=== PATIENT | male | born 1965 | race Caucasian/White ===

== ENCOUNTER 2018-10-19 18:48 | Inpatient (IN) | payer OTHER ==
[~2018-10-19] VITALS: Ht 177.8 cm; Wt 108.6 kg
[~2018-10-19 18:48] MED LIST: COREG25 MG PO; FLEXERIL PO; LEVOTHYROXINE500 MCG PO; PERCOCET 5-3251 EACH PO
[2018-10-19 18:49] VITALS: BP 165/133
[2018-10-19] MEDS ORDERED: ASPIR 8181 MG PO (18:51)
[2018-10-19 19:19] LABS: ABSOLUTE BASOPHILS 0.1 thou/uL (0.0-0.2); ABSOLUTE LYMPHOCYTES 1.1 thou/uL (0.8-5.3); ABSOLUTE MONOCYTES 1.1 thou/uL (0.0-1.2); BASOPHILS 0.5 %; EOSINOPHILS 0.2 %; HEMATOCRIT 45.1 % (42.0-52.0); HEMOGLOBIN 15.1 gm/dL (14.0-18.0); LYMPHOCYTES 10.1 %; MCHC 33.4 g/dL (28.0-37.0); MCV 92.7 fL (80.0-100.0); MONOCYTES 9.4 %; MPV 8.2 fl. (7.2-11.1); NUCLEATED RBCS 0 /100WBC; PLATELET COUNT* 186 thou/uL (150-400); POLYS 79.8 %; RBC 4.87 mil/uL (4.50-6.00); RDW-CV 13.2 % (10.5-14.5); WBC 11.3 thou/uL (4.0-11.0)
[2018-10-19 19:32] LABS: ANION GAP 11 mmol/L (7-16); BUN 25 mg/dL (7-18); CALCIUM 9.6 mg/dL (8.5-10.1); CHLORIDE 98 mmol/L (98-107); CO2 29 mmol/L (21-32); CREATININE 0.9 mg/dL (0.6-1.3); GLUCOSE 149 mg/dL (70-99); SODIUM 138 mmol/L (136-145)
[2018-10-19 19:38] LABS: ALBUMIN 3.7 g/dL (3.4-5.0); ALKALINE PHOSPHATASE 59 U/L (46-116); NT-PRO BRAIN NAT PEPTIDE 326 pg/mL (<300); SGOT 51 U/L (15-37); SGPT 98 U/L (30-65); TOTAL BILIRUBIN 1.1 mg/dL (<0.1-1.0); TOTAL PROTEIN 7.8 g/dL (6.4-8.2); TROPONIN-I LEVEL <0.06 ng/mL (<0.06)
[2018-10-19 23:50] VITALS: BP 154/110
[2018-10-19 23:53] VITALS: BP 183/130
[2018-10-20 04:00] VITALS: BP 152/91
--- NOTE | 2018-10-20 05:33 | NUR ---
RECEIVED REPORT AND ASSUMED CARE AT 2350. PT TRANSPORTED FROM ED TO ROOM 225. BP ELEVATED, OTHERWISE VSS. CARDIAC MONITORING IN PLACE. ASSESSMENT COMPLETED CHARTED. DISCUSSED PLAN OF CARE WITH PT, VERBALIZED UNDERSTANDING. PT UP AD YASMIN IN ROOM, ON RA. PAIN REPORTED IN R ARM. PRN MEDICATION ADMIN PER ORDERS. PT ORIENTATED TO THE ROOM, CALL LIGHT, FALL POLICY. HOURLY ROUNDING COMPLETED AND ALL NEEDS MET.
[2018-10-20 08:00] VITALS: BP 186/100
[2018-10-20 12:38] VITALS: BP 171/98
--- NOTE | 2018-10-20 13:33 | NUR ---
ASSUMED PT CARE AT 0730 REPORT RECEIVED FROM NURSE. 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 BP IN THE 180S. COREG GIVEN THEN LATER LISINOPRIL. ON RA AND SATURATION MAINTAINED ABOVE 95%. PT STATES THAT HE IS IN PAIN IN RIGHT UPPER EXTRMITY RATING PAIN AT LEVEL 7. PAIN PILL GIVEN ORDERED. [facility] CALLED IN THE MORNING. MED LIST COMMUNICATED OVER THE PHONE SINCE PT DOES NOT REMEMBER HIS MEDICINE LIST. DR CEJA NOTIFIED AND REVIEWED AND APPROVED MEDICINES. ORDERS ENTERED ON Myrio. PT NPO STATUS MAINTAINED AWAITING TO BE SEEN JHONNY PRINTED FORMS PROOFREADER. DR CEJA SAW PT IN THE MORNING AND ORDERED STRESS TEST AND ECHO. STRESS TEST SCHEDULED FOR 1600. PT NPO STATUS MAINTAINED. ORTHO DR CAME IN AND LOOKED AT PT RIGHT UPPER EXTR. NEW ROLLS APPLIED PER DR ORDER. PT REFUSED TO APPLY SLING. WILL CONTINUE TO MONITOR.
--- NOTE | 2018-10-20 14:33 | NUR ---
Pt is A&O. Resides at home alone. 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 Pt states that his landlord called the police on him and he was arrested. Pt plans to return home at vt. No hx of or SNF. Pt will need a cab voucher to home at vt. Following.
--- NOTE | 2018-10-20 15:53 | NUR ---
ECHO PERFORMED IN PT ROOM AT AROUND 1500
[2018-10-20 16:00] VITALS: BP 179/95
--- NOTE | 2018-10-20 16:16 | NUR ---
AT 1600 PT LEFT FLOOR WITH TRANSPORTER FROM RADIOLOGY UNIT FOR STRESS TEST.
--- NOTE | 2018-10-20 16:41 | 2DMMODE ---
[place] [address] 2 D/M-MODE ECHOCARDIOGRAM Name: SALVADOR GERMAN Room: [address] Heather#: [id number] Admission: 10/19/18 Attend Phys: Parish Pop, Discharge: Date of : 63 Date of Service: 10/20/18 1641 Report #: [id number] THIS REPORT FOR: //name// APPROVED REPORT Study performed: 10/20/2018 15:07:52 EXAM: Comprehensive 2D, Doppler, and color-flow Echocardiogram Patient Location: In-Patient Room #: [facility] Status: routine BSA: 2.26 HR: 61 bpm BP: 171/98 mmHg Rhythm: NSR Other Information Study Quality: Good Indications Chest Pain 2D Dimensions IVSd: 12.04 (7-11mm) LVOT Diam: 20.72 (18-24mm) LVDd: 44.22 mm PWd: 12.17 (7-11mm) Ascending Ao: 37.76 (22-36mm) LVDs: 23.30 (25-40mm) Aortic Root: 33.46 mm Volumes Left Atrial Volume (Systole) LA ESV Index: 32.40 mL/m2 Aortic Valve AoV Peak Ricci.: 1.65 m/s AO Peak Gr.: 10.89 mmHg LVOT Max P.63 mmHg AO Mean Gr.: 5.80 mmHg LVOT Mean P.34 mmHg LVOT Max V: 1.63 m/s AO V2 VTI: 29.11 cm LVOT Mean V: 0.93 m/s KADE (VTI): 3.40 cm2 LVOT V1 VTI: 29.33 cm Mitral Valve E/A Ratio: 0.72 MV Decel. Time: 279.71 ms MV E Max Ricci.: 0.79 m/[place] [address] 2 D/M-MODE ECHOCARDIOGRAM Name: SALVADOR GERMAN Room: [address] M.R.#: [id number] Admission: 10/19/18 Attend Phys: Parish Pop, Discharge: Date of : 63 Date of Service: 10/20/18 1641 Report #: [id number] MV PHT: 81.12 ms MVA (PHT): 2.71 cm2 TDI E/Lateral E': 8.78 E/Medial E': 8.78 Medial E' Ricci.: 0.09 m/s Lateral E' Ricci.: 0.09 m/s Left Ventricle The left ventricle is normal size. There is normal LV segmental wall motion. Borderline concentric left ventricular hypertrophy. Left ventricular systolic function is normal. The left ventricular ejection fraction is within the normal range. LVEF is 55-60%. Grade I - abnormal relaxation pattern. Right Ventricle The right ventricle is normal size. The right ventricular systolic function is normal. Atria The left atrium size is normal. The right atrium size is normal. Aortic Valve Mild aortic valve sclerosis. No aortic regurgitation is present. There is no aortic valvular stenosis. Mitral Valve The mitral valve is normal in structure. Trace mitral regurgitation. No evidence of mitral valve stenosis. Tricuspid Valve The tricuspid valve is normal in structure. Trace tricuspid regurgitation. Unable to assess PA pressure. Pulmonic Valve The pulmonary valve is normal in structure. There is no pulmonic valvular regurgitation. Great Vessels The aortic root is normal in size. IVC is normal in size and collapses >50% with inspiration. Pericardium There is no pericard[place] [address] 2 D/M-MODE ECHOCARDIOGRAM Name: GERMANSALVADOR Cardenas Room: [address]#: [id number] Admission: 10/19/18 Attend Phys: Parish Pop, Discharge: Date of : 63 Date of Service: 10/20/18 1641 Report #: [id number] <Conclusion> The left ventricle is normal size. Borderline concentric left ventricular hypertrophy. Left ventricular systolic function is normal. The left ventricular ejection fraction is within the normal range. LVEF is 55-60%. Grade I - abnormal relaxation pattern. The right ventricle is normal size. The left atrium size is normal. Mild aortic valve sclerosis. No aortic regurgitation is present. There is no aortic valvular stenosis. The mitral valve is normal in structure. Trace mitral regurgitation. IVC is normal in size and collapses >50% with inspiration. There is no pericardial effusion. There is normal LV segmental wall motion. <ELECTRONICALLY SIGNED> By: Saud Cha MD, [facility] 10/20/181640 40 40 Saud Cha MD, FACC /INF
[2018-10-20] MEDS ORDERED: LISINOPRIL10 MG PO (16:54)
--- NOTE | 2018-10-20 17:01 | NUR ---
ECHO RESULT IN COMUNICATED TO DR CEJA
[2018-10-20 19:45] VITALS: BP 112/72
[2018-10-21] VITALS (7 sets, daily range): BP systolic 116–135; BP diastolic 68–84
[2018-10-21 05:12] LABS: ABSOLUTE EOSINOPHILS 0.2 thou/uL (0.0-0.7); ABSOLUTE LYMPHOCYTES 1.6 thou/uL (0.8-5.3); ABSOLUTE NEUTROPHILS 4.8 thou/uL (1.6-8.1); BASOPHILS 0.5 %; EOSINOPHILS 2.7 %; HEMATOCRIT 41.3 % (42.0-52.0); HEMOGLOBIN 14.1 gm/dL (14.0-18.0); LYMPHOCYTES 21.3 %; MCH 31.8 pg (26.0-34.0); MCV 93.7 fL (80.0-100.0); MONOCYTES 12.9 %; MPV 8.5 fl. (7.2-11.1); NUCLEATED RBCS 0 /100WBC; PLATELET COUNT* 179 thou/uL (150-400); POLYS 62.6 %; RBC 4.41 mil/uL (4.50-6.00); RDW-CV 13.1 % (10.5-14.5); WBC 7.7 thou/uL (4.0-11.0)
[2018-10-21 05:23] LABS: ALKALINE PHOSPHATASE 59 U/L (46-116); ANION GAP 11 mmol/L (7-16); BUN 25 mg/dL (7-18); CHLORIDE 97 mmol/L (98-107); CHOLESTEROL 230 mg/dL (<200); CO2 28 mmol/L (21-32); CREATININE 0.8 mg/dL (0.6-1.3); GLUCOSE 115 mg/dL (70-99); HDL CHOLESTEROL 50 mg/dL (>40); LDL CHOLESTEROL 160 mg/dL (<100); MAGNESIUM 2.2 mg/dL (1.8-2.4); PHOSPHORUS* 4.1 mg/dL (2.5-4.9); POTASSIUM 3.5 mmol/L (3.5-5.1); SGOT 58 U/L (15-37); SGPT 88 U/L (30-65); SODIUM 136 mmol/L (136-145); TC:HDL 4.6 Ratio (Not establshd); TOTAL BILIRUBIN 0.8 mg/dL (<0.1-1.0); TOTAL PROTEIN 7.1 g/dL (6.4-8.2); TRIGLYCERIDE 100 mg/dL (<150); VLDL 20 mg/dL (<40)
[2018-10-21 05:34] LABS: SERUM ASSESSMENT Clear
--- NOTE | 2018-10-21 08:10 | NUR ---
RECEIVED REPORT AND ASSUMED CARE AT 1900. VSS. CARDIAC MONITORING IN PLACE. PT REPORTS PAIN IN L ARM. PRN MEDICATION ADMIN PER ORDERS. PT STATES HE IS READY TO GO HOME. ASSESSMENT COMPLETED CHARTED. PT UP AD YASMIN IN ROOM, ON RA.PT EDUCATED ON NOT UNWRAPPING AND REWRAPPING HIS SPLINT HIMSELF. VERBALIZED UNDERSTANDING. PT PACING IN HALLWAY "LOOKING FOR THE POLICE" PT REASSURED THAT THE POLICE WERE NOT OUT IN THE HALLWAYS. PT RETURNED TO HIS ROOM. HOURLY ROUNDING COMPLETED AND ALL NEEDS MET. NURSING WILL CONTINUE TO MONITOR
[2018-10-21] MEDS ORDERED: ATORVASTATIN CA40 MG PO (12:30)
--- NOTE | 2018-10-21 15:23 | NUR ---
1500 PATIENT RETURNED FROM NUCLEAR MEDICINE
--- NOTE | 2018-10-21 15:45 | NUR ---
LATE ENTRY 8930 ASSUMED CARE OF PATIENT. PLEASE SEE DOCUMENTED ASSESSMENT. PLAN IS TO FINISH STRESS TEST TODAY. DR REEVES TO SEE PATIENT. RIGHT ARM SPLINT INTACT
--- NOTE | 2018-10-21 17:09 | NUR ---
PT PROGRESSING TOWARDS GOALS. NO CHEST PAIN,ONLY ELBOW DISCOMFORT. AWAITING STRESS TEST RESULTS AND POSSIBLE DISCHARGE.
--- NOTE | 2018-10-21 17:52 | CARDNUC ---
[place] [address] CARDIAC NUCLEAR IMAGING REPORT Name: GERMANSALVADOR M Room: [address] IN [facility]#: [id number] Admission: 10/21/18 Attend Phys: Parish Pop, Discharge: Date of : 63 Date of Service: 10/21/18 1752 Report #: [id number] THIS REPORT FOR: //name// APPROVED REPORT Study performed: 10/20/2018 12:50:00 Indication: Chest pain Patient Location: In-Patient Room #: 225 Stress Tech: Beverly Daniels Stress Nurse: Rachelle Gamboa RN Ht: 5 ft 10 in Wt: 241 lbs BSA: 2.26 m2 BMI: 34.57 Medical History Medical History: Angina, CAD s/p DC, Current Smoker, Diabetes, HTN, Hyperlipidemia, Obesity, Alcohol abuse. Medications: Carvedilol, ASA 81 MG, Lisinopril, Unknown statin Allergies: Penicillins Cardiac Risk Factors: Age, Current Smoker, DM, FHX of CAD, HTN, Hyperlipidemia, BMI, Alcohol abuse. Previous Cardiac Procedures: Myocardial infarction Pretest Chest Pain Characteristics: No chest pain Exercise History: Indeterminate Physical Disabilities: Right UE distal fracture with pain Meds Held (24 hrs): Carvedilol Resting Data Rest SPECT myocardial perfusion imaging was performed in supine position 30 minutes following the intravenous injection of 36.6 mCi of Tc-99m Sestamibi. Time of rest injection: 1400 Date: 10/21/2018 The images were gated to evaluate regional wall motion and calculate left ventricular ejection fraction. Administration Route: IV Administration Site: Left Arm Pharmacologic Stress Pharmacologic stress test was performed by injecting Regadenoson 0.4 mg IV push over 10-15 seconds immediately followed by the intravenous injection of 37.6 mCi of Tc-99m Sestamibi. Time of stress injection: 1650 Date: 10/20/2018 [place] [address] CARDIAC NUCLEAR IMAGING REPORT Name: SALVADOR GERMAN Room: [address] IN [facility].#: [id number] Admission: 10/21/18 Attend Phys: Parish Pop, Discharge: Date of : 63 Date of Service: 10/21/18 1752 Report #: [id number] Administration Route: IV Administration Site: Left Arm Heart Rate at time of stress injection: 120 bpm. Gated Stress SPECT was performed 40 minutes after stress injection. The images were gated to evaluate regional wall motion and calculate left ventricular ejection fraction. Stress Test Details Stress Test: Pharmacologic stress testing performed using 0.4 mg of regadenoson per 5 mL given IV over 10 seconds. Reason for pharmacologic stress test: physical limitation, recent right distal UE fracture. HR Max Heart Rate (APMHR): 166 bpm Resting HR: 84 bpm Target HR (85% APMHR): 141 bpm Max HR Achieved: 120 bpm % of APMHR: 72 Recovery HR: 110 bpm BP Resting BP: 152/95 mmHg Max BP: 146/81 mmHg Recovery BP: 173/78 mmHg BP response to stress: Normal blood pressure response to stress. ECG Resting ECG: Sinus Rhythm Stress ECG: Sinus Tachycardia ST Change: None Arrhythmia: None Recovery ECG: Sinus Rhythm Recovery ST Change: None Recovery Arrhythmia: None Clinical Reason for Termination: Completed protocol Stress Symptoms: Dizziness, Head and scalp tingling Exercise duration: 0 min 0 sec Exercise capacity: 1.00 METs The patient tolerated Lexiscan infusion without significant symptoms. Nurse Comments 53 year old inpatient male presented with recent right UE distal fracture and report of chest pain. Due to fracture and splint, [place] [address] CARDIAC NUCLEAR IMAGING REPORT Name: SALVADOR GERMAN Room: [address]#: [id number] Admission: 10/21/18 Attend Phys: Parish Pop, Discharge: Date of : 63 Date of Service: 10/21/18 175 Report #: [id number] patient completed a sitting Lexiscan. Patient tolerated sitting Becky well with minimal side effects that resolved with caffeine. Patient EKG had some irregularities prior to test which Dr. Cha reviewed and approved to continue with Lexiscan stress test. Recovery unremarkable. Patient taken via wheelchair by staff to Nuclear Medicine for images. Patient was stable with no complaints at that time. Stress ECG Conclusion The baseline 12-lead EKG shows sinus rhythm with no significant ST segment abnormalities. EKGs during and post Lexiscan stress show sinus tachycardia with no significant ST or T wave changes when compared to baseline. There were no stress-induced arrhythmias. Study Quality Study: Good Artifact: Mild Diaphragmatic artifact Study Data At rest, the left ventricular ejection fraction was 63%.. Post stress, the left ventricular ejection was 81%.. TID = 0.84. Perfusion Myocardial perfusion images show mild photopenia in the inferior wall both at rest and post stress consistent with diaphragmatic attenuation artifact. No other significant defects were identified. Wall Motion Normal left ventricular wall motion. Nuclear Conclusion ECG Findings: negative for ischemia Clinical Findings: negative for ischemia Nuclear Findings: negative for ischemia Exercise Capacity: not assessed Left Ventricular Function: abnormal Risk Study: low Myocardial perfusion images show no defect to suggest infarct or ischemia. Left ventricular systolic function appears normal on gated studies. This is a low risk study. <Conclusion> The baseline 12-lead EKG shows sinus rhythm with [place] [address] CARDIAC NUCLEAR IMAGING REPORT Name: GERMANSALVADOR Cardenas Room: [address] IN ..#: [id number] Admission: 10/21/18 Attend Phys: Parish Pop, Discharge: Date of : 63 Date of Service: 10/21/18 1752 Report #: [id number] segment abnormalities. EKGs during and post Lexiscan stress show sinus tachycardia with no significant ST or T wave changes when compared to baseline. There were no stress-induced arrhythmias. <ELECTRONICALLY SIGNED> By: Robert Perdomo MD, FACC 10/21/181751 51 51 Robert Perdomo MD, FACC /INF
--- NOTE | 2018-10-21 17:57 | NUR ---
DR FRYE CALLED UNIT TO REPORT NORMAL STRESS TEST
--- NOTE | 2018-10-21 17:59 | EKG ---
[place] [address] ELECTROCARDIOGRAM REPORT Name: SALVADOR GERMAN Room: [address] ADM IN M.R.#: [id number] Admission: 10/21/18 Attend Phys: Parish Pop MD Discharge: Date of : 63 Report #: [id number] THIS REPORT FOR: //name// [facility] ED Test Date: 2018-10-19 Test Time: 19:21:55 Pat Name: SALVADOR GERMAN Department: Room: [facility] Gender: M Roller Checker: NORBERT : 1965 Requested By: Nesha Turcios Order Number: [id number] MD: Robert Perdomo Measurements Intervals [place] Rate: 94 P: 62 MA: 148 QRS: 47 QRSD: 121 T: 68 QT: 362 QTc: 453 Interpretive Statements Sinus rhythm Probable left atrial enlargement Lateral infarct, recent No previous ECG available for comparison Electronically Signed On 10-21-2018 17:59:29 POCKET MAKER by Robert Perdomo [email or web address] <ELECTRONICALLY SIGNED> By: Robert Perdomo MD, [facility] 10/21/18 1759 20 20 Robert Perdomo MD, FACC /EPI
[2018-10-21] MEDS ORDERED: OMEPRAZOLE20 M2 PO (18:23)
[2018-10-21 19:11] LABS: GLYCOHEMOGLOBIN (HGB A1C) 5.9 % (4.8-5.6)
--- NOTE | 2018-10-21 19:39 | NUR ---
1900 DISCHARGED AMBULATORY
== END 2018-10-21 19:08 | disposition home or self-care (01) | DRG 313 ==
LOC: M.ERS 18:48 → M.TBA-ER 21:44 → M.2W 21:44
PROVIDERS: Family Medicine; Nurse Practitioner Family; ADMIT Internal Medicine
PROC: 2W3CX1Z Immobilization of Right Lower Arm using Splint (ICD-10-PCS; principal; 2018-10-19)
DX: R07.89 Other chest pain (principal); M19.021 Primary osteoarthritis, right elbow; I10 Essential (primary) hypertension; I25.10 Atherosclerotic heart disease of native coronary artery without angina pectoris; E05.90 Thyrotoxicosis, unspecified without thyrotoxic crisis or storm; M25.511 Pain in right shoulder; R73.9 Hyperglycemia, unspecified; F10.10 Alcohol abuse, uncomplicated; E03.9 Hypothyroidism, unspecified; F17.210 Nicotine dependence, cigarettes, uncomplicated; I25.2 Old myocardial infarction; Z79.82 Long term (current) use of aspirin; Z79.899 Other long term (current) drug therapy; Z88.0 Allergy status to penicillin; Z88.5 Allergy status to narcotic agent; Z28.21 Immunization not carried out because of patient refusal

== ENCOUNTER 2018-10-25 09:33 | Emergency (ER) | payer OTHER ==
[~2018-10-25] VITALS: Ht 177.8 cm; Wt 112.5 kg
[~2018-10-25 09:33] MED LIST changes: +ASPIR 8181 MG PO; +ATORVASTATIN CA40 MG PO; +LISINOPRIL10 MG PO; +OMEPRAZOLE20 M2 PO
[2018-10-25] MEDS ORDERED: MOBIC15 MG PO (09:39)
[2018-10-25 10:00] LABS: ABSOLUTE EOSINOPHILS 0.2 thou/uL (0.0-0.7); ABSOLUTE LYMPHOCYTES 1.3 thou/uL (0.8-5.3); ABSOLUTE MONOCYTES 0.7 thou/uL (0.0-1.2); ABSOLUTE NEUTROPHILS 2.2 thou/uL (1.6-8.1); EOSINOPHILS 4.8 %; HEMOGLOBIN 12.6 gm/dL (14.0-18.0); LYMPHOCYTES 29.5 %; MCH 30.8 pg (26.0-34.0); MCHC 33.1 g/dL (28.0-37.0); MONOCYTES 16.5 %; MPV 7.6 fl. (7.2-11.1); NUCLEATED RBCS 0 /100WBC; PLATELET COUNT* 256 thou/uL (150-400); POLYS 48.2 %; RBC 4.09 mil/uL (4.50-6.00); RDW-CV 13.3 % (10.5-14.5); WBC 4.5 thou/uL (4.0-11.0)
[2018-10-25 10:09] LABS: APTT 26.6 Seconds (25.0-31.3); INR 0.9; PROTIME 9.7 Seconds (9.20-11.50)
[2018-10-25 10:25] LABS: ACETAMINOPHEN < 2 ug/mL (10-30); ALBUMIN 2.8 g/dL (3.4-5.0); ALCOHOL 259 mg/dL (<10); ALKALINE PHOSPHATASE 59 U/L (46-116); ANION GAP 11 mmol/L (7-16); BUN 20 mg/dL (7-18); CALCIUM 8.6 mg/dL (8.5-10.1); CHLORIDE 106 mmol/L (98-107); CO2 25 mmol/L (21-32); CREATININE 0.8 mg/dL (0.6-1.3); GLUCOSE 118 mg/dL (70-99); NT-PRO BRAIN NAT PEPTIDE 283 pg/mL (<300); POTASSIUM 3.8 mmol/L (3.5-5.1); SALICYLATE < 2.8 mg/dL (2.8-20.0); SGOT 33 U/L (15-37); SGPT 64 U/L (30-65); SODIUM 142 mmol/L (136-145)
[2018-10-25 10:26] LABS: TOTAL BILIRUBIN < 0.1 mg/dL (<0.1-1.0)
[2018-10-25 12:10] VITALS: BP 151/84
--- NOTE | 2018-10-25 14:01 | EKG ---
[place] [address] ELECTROCARDIOGRAM REPORT Name: SALVADOR GERMAN Room: [facility]#: [id number] Admission: 10/25/18 Attend Phys: Discharge: 10/25/18 Date of : 63 Report #: [id number] THIS REPORT FOR: //name// [facility] ED Test Date: 2018-10-25 Test Time: 09:54:45 Pat Name: SALVADOR GERMAN Department: Room: Gender: M Hand Sizer: : 1965 Requested By: Eddie Pierre Order Number: [id number] MD: Oliver Graham Measurements Intervals [place] Rate: 78 P: 55 DC: 170 QRS: 49 QRSD: 105 T: 45 QT: 374 QTc: 426 Interpretive Statements Sinus rhythm Minimal ST elevation, inferior leads Compared to ECG 10/19/2018 19:21:55 ST (T wave) deviation now present Electronically Signed On 10-25-2018 14:01:37 BOTTLE FILLER by Oliver Graham [email or web address] <ELECTRONICALLY SIGNED> By: Oliver Graham MD, [facility] 10/25/18 [id number] [id number] Oliver Graham MD, [facility] /EPI
== END 2018-10-25 12:10 | disposition home or self-care (01) ==
LOC: M.ERS 09:33
PROVIDERS: Family Medicine
DX: F10.129 Alcohol abuse with intoxication, unspecified (principal); Y90.8 Blood alcohol level of 240 mg/100 ml or more; E03.9 Hypothyroidism, unspecified; J44.9 Chronic obstructive pulmonary disease, unspecified; F17.210 Nicotine dependence, cigarettes, uncomplicated; Z88.0 Allergy status to penicillin; Z88.5 Allergy status to narcotic agent

== ENCOUNTER 2018-11-23 04:36 | Inpatient (IN) | payer OTHER ==
[~2018-11-23] VITALS: Ht 177.8 cm; Wt 107.0 kg
[~2018-11-23 04:36] MED LIST changes: +MOBIC15 MG PO
[2018-11-23 04:38] VITALS: BP 162/97
[2018-11-23 05:13] LABS: ABSOLUTE BASOPHILS 0.1 thou/uL (0.0-0.2); ABSOLUTE LYMPHOCYTES 1.2 thou/uL (0.8-5.3); ABSOLUTE MONOCYTES 1.4 thou/uL (0.0-1.2); ABSOLUTE NEUTROPHILS 8.7 thou/uL (1.6-8.1); BASOPHILS 0.6 %; EOSINOPHILS 0.2 %; HEMATOCRIT 39.3 % (42.0-52.0); HEMOGLOBIN 13.4 gm/dL (14.0-18.0); LYMPHOCYTES 10.9 %; MCV 91.1 fL (80.0-100.0); MONOCYTES 12.2 %; MPV 7.8 fl. (7.2-11.1); NUCLEATED RBCS 0 /100WBC; PLATELET COUNT* 174 thou/uL (150-400); POLYS 76.1 %; RBC 4.32 mil/uL (4.50-6.00); RDW-CV 13.6 % (10.5-14.5); WBC 11.5 thou/uL (4.0-11.0)
[2018-11-23 05:28] LABS: CALCIUM 9.3 mg/dL (8.5-10.1); CREATININE 0.8 mg/dL (0.6-1.3); POTASSIUM 4.2 mmol/L (3.5-5.1)
[2018-11-23 05:33] LABS: ALBUMIN 2.9 g/dL (3.4-5.0); TOTAL BILIRUBIN 1.2 mg/dL (<0.1-1.0); TOTAL PROTEIN 7.4 g/dL (6.4-8.2); URIC ACID* 6.6 mg/dL (2.6-7.2)
[2018-11-23 06:18] LABS: ESR (SEDRATE) 90 mm/hr (0-20)
[2018-11-23 08:49] VITALS: BP 152/102
[2018-11-23 09:00] VITALS: BP 115/72
--- NOTE | 2018-11-23 09:00 | NUR ---
PATIENT ADMITTED TO ROOM 313 VIA CART FROM ER AT 0845. BEDSIDE REPORT DONE WITH ER NURSE. ADMISSION PROCESS COMPLETED. PATIENT HAVING PAIN TO LEFT KNEE. PATIENT'S LEFT KNEE WRAPPED FROM ER AND FROM KNEE ASPIRATION IN ER. PATIENT REFUSED TO HAVE DRESSING REMOVED AND HAVE PICTURE TAKEN. PATIENT ORIENTED TO ROOM AND ENVIRONMENT. FALL PRECAUTIONS IN PLACE. CALL LIGHT WITHIN REACH. WILL CONTINUE WITH PLAN OF CARE.
[2018-11-23 09:40] LABS: BF RBC 10022 /mm3; TOTAL CELL COUNT 20557 /mm3
[2018-11-23 09:53] LABS: CLARITY HAZY; COLOR AMBER; TOTAL VOLUME 8 ml
[2018-11-23 09:55] LABS: BF LYMPHOCYTES 7 %; BF MONOCYTES 1 %; BF POLYS 92 %
[2018-11-23 10:05] LABS: SOURCE LEFT KNEE
[2018-11-23 16:00] VITALS: BP 130/74
--- NOTE | 2018-11-23 18:54 | NUR ---
PATIENT HAS BEEN A/O X 4 THIS SHIFT. MEDICATED FOR LEFT KNEE PAIN WITH ORAL PAIN MEDS. IV ANTIBIOTICS AND MVI BAG INFUSING. PATIENT VOIDING PER URINAL. PATIENT TOLERATING DIET. SEEN BY ORTHO, DRESSING IN PLACE TO LEFT KNEE. HOURLY ROUNDING COMPLETED. CALL LIGHT WITHIN REACH. WILL CONTINUE WITH PLAN OF CARE.
[2018-11-23 19:45] VITALS: BP 125/74
[2018-11-23 23:31] LABS: AMP/METHAMP Negative (Negative); BARBITURATES Negative (Negative); BENZODIAZEPINES Negative (Negative); COCAINE Negative (Negative); METHADONE Negative (Negative); OPIATES POSITIVE (Negative); PCP Negative (Negative); THC POSITIVE (Negative)
[2018-11-24 02:10] LABS: HEPATITIS B SURFACE AG Negative (Negative)
[2018-11-24 03:12] LABS: BODY FLUID PROTEIN 2.8 g/dL (())
[2018-11-24 04:09] LABS: ABSOLUTE LYMPHOCYTES 1.3 thou/uL (0.8-5.3); ABSOLUTE MONOCYTES 1.2 thou/uL (0.0-1.2); ABSOLUTE NEUTROPHILS 7.5 thou/uL (1.6-8.1); BASOPHILS 0.3 %; EOSINOPHILS 0.3 %; HEMATOCRIT 37.1 % (42.0-52.0); HEMOGLOBIN 12.6 gm/dL (14.0-18.0); LYMPHOCYTES 12.8 %; MCH 31.6 pg (26.0-34.0); MCHC 33.9 g/dL (28.0-37.0); MCV 93.2 fL (80.0-100.0); MONOCYTES 11.8 %; MPV 8.2 fl. (7.2-11.1); NUCLEATED RBCS 0 /100WBC; PLATELET COUNT* 160 thou/uL (150-400); POLYS 74.8 %; RBC 3.98 mil/uL (4.50-6.00); RDW-CV 13.8 % (10.5-14.5)
[2018-11-24 04:24] LABS: CALCIUM 8.7 mg/dL (8.5-10.1); CREATININE 0.9 mg/dL (0.6-1.3); POTASSIUM 3.7 mmol/L (3.5-5.1)
--- NOTE | 2018-11-24 06:14 | NUR ---
PT SLEPT ON AND OFF THIS SHIFT. ASSESSMENT DOCUMENTED. MEDS GIVEN PER E-MAR. IV PATENT, FLUIDS INFUSING. PAIN MEDS GIVEN PER E-MAR WITH RELIEF. PT BECOMING AGGITATED AT TIMES THIS SHIFT. WILL CONTINUE WITH PLAN OF CARE.
--- NOTE | 2018-11-24 07:59 | CON ---
[facility] [address] [place] [address] CONSULTATION Name: SALVADOR GERMAN Room: [address] IN M.R.#: [id number] Admission: 11/23/18 Attend Phys: Malcolm Mccoy MD Discharge: Date of : 63 Report #: [id number] THIS REPORT FOR: //name// CC: Malcolm Mccoy [facility] physician/PCP DATE OF SERVICE: 11/23/2018 ATTENDING PHYSICIAN: Malcolm Mccoy M.D. REASON FOR EVALUATION: Possible left knee septic arthritis. HISTORY OF PRESENT ILLNESS: Chart reviewed, patient examined. This is a 53-year-old with a history of known atherosclerotic coronary artery disease, COPD and alcohol abuse, who several days ago sustained a fall, struck his left knee, had quite a contusion. It was actually improving; however, over the course of the last 36 hours prior to his admission, increasing pain. He was unable to bear weight. In fact, the pain was described as so severe that made him pass out on at least a couple of occasions. He woke up on the floor at one point and then in the bathroom the second time. It is not clear if he had any fevers. Denies any significant changes in pulmonary status. No GI related complaints. She underwent evaluation in the Emergency Room including aspiration showed 20,000 white cells, 92% polys, 10,000 red cells. Culture and Gram stain are pending. Venous Doppler of lower extremity showed no evidence of DVT. Elevated CRP of 187.5 and a sed rate of 90. He was started empirically on antimicrobials with vancomycin, ceftriaxone, is mildly encephalopathic. Denies any particular pulmonary-related complaints. ALLERGIES: LISTED TO PENICILLIN AND CODEINE. CURRENT MEDICATIONS: Include atorvastatin, enoxaparin, lisinopril, aspirin, levothyroxine, carvedilol, prednisone 40 daily, tramadol, pantoprazole, hydralazine, vancomycin and ceftriaxone. PAST MEDICAL HISTORY: As noted above, COPD, atherosclerotic coronary artery disease, history of hypothyroidism, hypertension, PTSD. SOCIAL HISTORY: He drinks heavy amounts of ethanol on a daily basis, smokes e-cigarettes, uses marijuana. FAMILY HISTORY: Noncontributory. REVIEW OF SYSTEMS: Ten point review of systems otherwise unremarkable with the exception of the above. PHYSICAL EXAMINATION: [place] [address] CONSULTATION Name: SALVADOR GERMAN León Room: [address]#: [id number] Admission: 11/23/18 Attend Phys: Malcolm Mccoy MD Discharge: Date of : 63 Report #: [id number] GENERAL: He appears somewhat chronically ill, in mbps-rz-dbyrhypw distress. He is perhaps mildly encephalopathic, although he is oriented, undernourished. VITAL SIGNS: Temperature 100.2, pulse 84, respirations 18, blood pressure 115/72. SKIN: Warm, dry, no rashes. HEENT: Otherwise, unremarkable. Extraocular muscles intact. NECK: Supple. LUNGS: Diminished breath sounds. HEART: Regular. I do not appreciate a murmur. ABDOMEN: Soft, mildly distended. There are no peritoneal signs, but a compression dressing over his left knee distal. EXTREMITIES: Left lower extremity has 2+ edema. It is warm to touch. There are some diminished pulses. GENITOURINARY: Deferred. RECTAL: Deferred. LABORATORY DATA: Left knee fluid analysis is khushboo, hazy, 20,557 white cells, 92% polys, 1% mono, 7% lymphs. Total red cell count of 10,022. Cultures pending. Doppler unremarkable. X-ray of the left knee showed large effusion, otherwise no osseous abnormalities. Left foot, no acute osseous abnormalities. Left ankle, no acute osseous abnormalities. CBC: White count 11.5, H and H 13.4 and 39.3, platelets of 174. Lactic acid 1.3. Electrolytes: Sodium 133, potassium 4.2, chloride 97, bicarbonate is 27, anion gap of 9, BUN and creatinine 17 and 0.8, glucose of 122. LFTs, AST of 54, ALT of 73. Estimated GFR of 101. Albumin 2.9, total protein 7.4. ASSESSMENT AND PLAN: Inflammatory process involving his left knee. This is post-trauma. Does not appear to be an overt hemarthrosis based on analysis, certainly could be developed. Given his serious pain, I think it does involve the joint as opposed to the bursa. We will await cultures. Continue empiric therapy, vancomycin, ceftriaxone is reasonable. I am going to check a hepatitis C antibody as well. <ELECTRONICALLY SIGNED> By: Jose R Edwards MD 11/24/18 0759 1043 1220Josingh Edwards MD /nt
[2018-11-24 08:00] VITALS: BP 135/78
--- NOTE | 2018-11-24 16:03 | NUR ---
SW met with pt to complete initial assessment, introduce self, and SW role. Pt alert, oriented. Pt says that he still lives in his home although he has been in the process of being evicted. Pt lives there alone. Pt has financial issues due to not being able to work. Pt said he went to social problems specialist about help for covering medications but said that was just for a month. SW explained that most rx assistance programs will help to reduce cost but will not provide medications for free for more than a month but if SW finds other assistance for meds, SW will provide to pt. Pt has hx of marijuana use. SW to continue to follow to assist with safe dc planning.
[2018-11-24 18:06] VITALS: BP 185/99
[2018-11-25] VITALS: BP 173/83
[2018-11-25 08:06] VITALS: BP 183/106
[2018-11-25 09:00] LABS: BF RBC 9563 /mm3; TOTAL CELL COUNT 13180 /mm3
[2018-11-25 09:04] LABS: CLARITY CLOUDY; COLOR AMBER; TOTAL VOLUME 60 ml
[2018-11-25 09:07] LABS: BF LYMPHOCYTES 2 %; BF MONOCYTES 14 %; BF POLYS 84 %; SOURCE LEFT KNEE FLUID
[2018-11-25 12:30] LABS: SOURCE KNEE JOINT
--- NOTE | 2018-11-25 14:36 | NUR ---
WAS ASKED TO SEE PT AGAIN RE: SOCIAL CONCERNS. MET WITH PT. HE HAS A COURT DATE TOMORROW THAT HE WILL NOT BE ABLE TO MAKE. HE DIDN'T HAVE INFO BUT GAVE CM PERMISSION TO CONTACT [facility] TO ASSIST WITH NOTIFICATION. WAS ABLE TO TRACK DOWN THAT PT HAD [id number] 11/26. SPOKE WITH TRAVIS, SHE STATED A LETTER TO THE COURT AT [phone] STATING PT WAS HOSPITALIZED. DISCUSSED WITH FATUMA/DIRECTOR, WILL PREPARE LETTER AND FAX TODAY
[2018-11-25 14:41] VITALS: BP 145/76
[2018-11-25 15:11] LABS: ANA INTERPRETATION Negative (Negative)
--- NOTE | 2018-11-25 18:44 | NUR ---
VSS-AFEBRILE. TWO BEDSIDE ASPIRATIONS OF LEFT KNEE THIS SHIFT. SPECIMENS SENT TO LAB PER ORDERS. DECREASE IN SWELLING AND PAIN WITH BOTH PROCEDURES. ICE TO LEFT KNEE FOR COMFORT. OOB WITH THERAPY TO CHAIR. PAIN BETTER CONTROLLED TODAY WITH CHANGE OF PO MEDICATION. CALLS APPOPRIATELY FOR ANY NEEDED ASSISTANCE.
[2018-11-26] VITALS: BP 164/86
--- NOTE | 2018-11-26 06:15 | NUR ---
PTS LEFT KNEE DRESSING REMAINED CLEAN, DRY AND INTACT DURING THE SHIFT WITH NO VISIBLE SIGNS OF INCREASED SWELLING. PT REQUIRED SEVERAL DOSES OF PAIN MEDICATION THROUGHOUT THE SHIFT AND HAD A HARD TIME FALLING ASLEEP. NEW ORDERS FOR BENADRYL AND MELATONIN WERE RECIEVED. PT WAS ABLE TO SLEEP ON AND OFF DURING THE NIGHT.
[2018-11-26 11:12] LABS: BODY FLUID PROTEIN 3.1 g/dL (())
[2018-11-26 12:30] LABS: HEMATOCRIT 38.4 % (42.0-52.0); HEMOGLOBIN 12.6 gm/dL (14.0-18.0); MCH 30.8 pg (26.0-34.0); MCHC 32.8 g/dL (28.0-37.0); RBC 4.09 mil/uL (4.50-6.00); RDW-CV 13.8 % (10.5-14.5); WBC 5.5 thou/uL (4.0-11.0)
[2018-11-26 16:00] VITALS: BP 197/116
[2018-11-26 17:16] VITALS: BP 182/89
[2018-11-26 20:00] VITALS: BP 214/104
[2018-11-27] VITALS: BP 183/93
--- NOTE | 2018-11-27 05:41 | NUR ---
ASSUMED PATIENT CARE AT 1900. PATIENT ALERT AND ORIENTED TIMES FOUR. COMPLAINTS OF PAIN, CONTROLLED WITH ORAL MEDICATION. IV PATENT TO FLUSHES. CONSENT SIGNED. LEFT KNEE IN KAVYA WRAP. NOT VISUALIZED. CAR FILLER AND HOURLY ROUNDING COMPLETED CHARTED.
[2018-11-27 05:44] LABS: ABSOLUTE EOSINOPHILS 0.3 thou/uL (0.0-0.7); ABSOLUTE LYMPHOCYTES 1.1 thou/uL (0.8-5.3); ABSOLUTE MONOCYTES 0.7 thou/uL (0.0-1.2); ABSOLUTE NEUTROPHILS 3.5 thou/uL (1.6-8.1); BASOPHILS 0.8 %; EOSINOPHILS 5.9 %; HEMATOCRIT 42.3 % (42.0-52.0); HEMOGLOBIN 14.5 gm/dL (14.0-18.0); LYMPHOCYTES 19.7 %; MCH 31.8 pg (26.0-34.0); MCHC 34.3 g/dL (28.0-37.0); MCV 92.9 fL (80.0-100.0); MONOCYTES 12.5 %; MPV 7.7 fl. (7.2-11.1); NUCLEATED RBCS 0 /100WBC; PLATELET COUNT* 255 thou/uL (150-400); POLYS 61.1 %; RBC 4.55 mil/uL (4.50-6.00); RDW-CV 13.9 % (10.5-14.5); WBC 5.7 thou/uL (4.0-11.0)
[2018-11-27 06:00] LABS: CALCIUM 9.8 mg/dL (8.5-10.1); CREATININE 0.9 mg/dL (0.6-1.3); POTASSIUM 3.9 mmol/L (3.5-5.1)
[2018-11-27 09:51] VITALS: BP 192/97
[2018-11-27 12:00] VITALS: BP 192/97
[2018-11-27 16:00] VITALS: BP 98/30
--- NOTE | 2018-11-27 17:53 | NUR ---
PATIENT HAS BEEN ALERT AND ORIENTED WHILE ON THE FLOOR TODAY. WAS IN THE OR FOR PART OF THE AFTERNOON HAVING KNEE CLEANED OUT. VITAL SIGNS STABLE, BLOOD PRESSURE ELEVATED ON 3 LITERS OF OXYGEN AND CAPNO. CALL LIGHT IS IN REACH, WILL CONTINUE TO MOMITOR.
[2018-11-28] VITALS: BP 140/83
--- NOTE | 2018-11-28 07:00 | NUR ---
ASSUMED PT CARE AT 1930. NURSING ASSESSMENT COMPLETED AT START OF SHIFT. PT C/O PAIN THIS SHIFT, PRN PAIN MEDICATION ADMINISTERED, SEE EMAR FOR DOCUMENTATION. PARTIAL RELIEF OBTAINED. CONTINUES ON 3L NC WITH CAPNOGRAPHY. HOURLY ROUNDING COMPLETED, NEGATIVE SEPSIS SCREEN THIS SHIFT. CALL LIGHT WITHIN REACH.
[2018-11-28 10:41] VITALS: BP 152/94
[2018-11-28 16:05] VITALS: BP 128/70
--- NOTE | 2018-11-28 18:09 | NUR ---
PATIENT HAS BEEN ALERT AND OREINTED TODAY VERY PLEASANT. VITAL SIGNS STABLE ON ROOM AIR. PAIN HAS BEEN BETTER CONTROLLED TODAY ALONG WITH BLOOD PRESSURE. HEMOVAC, DRESSING AND ICE ON LEFT KNEE. CALL LIGHT IS IN REACH, WILL CONTINUE TO MONITOR.
[2018-11-28 20:15] VITALS: BP 136/55
--- NOTE | 2018-11-29 04:20 | NUR ---
ASSUMED CARE AT START OF SHIFT PT C/O LEFT KNEEE PAIN , MEDICATION GIVEN PRESCRIBD FOR COMFORT, RESTED WELL THROUGOUT HOURLY ROUND. HEMOVAC IN PLACED WITH SEROIUS DRAINAGE. LEG ELEVATED ON PILLOW , WILL CONITUE WITH CURRENT PLAN OF CARE.
[2018-11-29 09:50] VITALS: BP 157/88
[2018-11-29 16:00] VITALS: BP 126/74
--- NOTE | 2018-11-29 18:40 | NUR ---
PATIENT IS ALERT NAD ORIENTED TODAY VERY PLEASANT. COMPLAINTS OF PAIN THAT IS BETTER TODAY AND CONTROLLED BETTER WITH THE ORAL PAIN MEDICATION. PROVIDER PULLED HEMOVAC TODAY. PATIENT HAS BEEN IN CHAIR MOST OF THE DAY. VITAL SIGNS STABLE ON ROOM AIR. CALL LIGHT IS IN REACH, WILL CONTINUE TO MONITOR.
[2018-11-29 19:36] LABS: SOURCE SYNOVIAL
[2018-11-30] VITALS: BP 133/78
--- NOTE | 2018-11-30 05:53 | NUR ---
PATIENT SLEPT PART OF THE NIGHT. DRESSING TO LEFT KNEE REMAINS INTACT. PATIENT WAS GIVEN PAIN MEDICINE ABOUT EVERY FOUR HOURS. PATIENT COULD POSSIBLY DISCHARGE TODAY. WILL CONTINUE TO MONITOR.
[2018-11-30 08:10] VITALS: BP 144/80
--- NOTE | 2018-11-30 13:25 | NUR ---
Nutrition: Pt assessed for LOS. Alb 2.9. Eating 90-100% of Regular diet. Wt: 236#. Will likely discharge to law morning. Admitted with possible septic knee. No nutrition concerns. Low risk.
[2018-11-30 15:13] VITALS: BP 115/70
--- NOTE | 2018-11-30 18:33 | NUR ---
PATIENT HAS BEEN A/O X 4 THIS SHIFT. MEDICATED FOR LEFT KNEE PAIN THROUGHOUT THE SHIFT WITH PARTIAL RELIEF. PATIENT UP WITH ASSIST OF 1 AND WALKER. PATIENT PARTICIPATED WITH PHYSICAL THERAPY THIS SHIFT. PATIENT SHOWERED THIS SHIFT. DRESSING TO LEFT KNEE INTACT. POSSIBLE DISCHARGE ON FRIDAY. HOURLY ROUNDING COMPLETED. CALL LIGHT WITHIN REACH. WILL CONTINUE WITH PLAN OF CARE.
[2018-11-30 20:15] VITALS: BP 128/83
--- NOTE | 2018-12-01 05:41 | NUR ---
PT SLEPT MOST OF SHIFT. ASSESSMENT DOCUMENTED. MEDS GIVEN PER E-JAN. PAIN MEDS GIVEN PER E-JAN. NO IV ACCESS THIS SHIFT. WILL CONTINUE WITH PLAN OF CARE.
--- NOTE | 2018-12-01 07:01 | OP ---
[address] [address] OPERATIVE REPORT Name: SALVADOR GERMAN Room: [address] IN M.R.#: [id number] Admission: 11/23/18 Attend Phys: Malcolm Mccoy MD Discharge: Date of : 63 Report #: [id number] THIS REPORT FOR: //name// CC: Malcolm Mccoy [facility] physician/PCP DATE OF SERVICE: 11/27/2018 PREOPERATIVE DIAGNOSIS: Left knee gouty arthritis with possible septic joint. POSTOPERATIVE DIAGNOSIS: Left knee gouty arthritis with possible septic joint. SURGERY PERFORMED: Left knee arthroscopic lavage with 3 compartment synovectomy. SURGEON: Bryon Wesley DO RETURN CLERK: Dr. Rebecca DO ANESTHESIA: General anesthetic plus local anesthetic 0.5% Marcaine with epinephrine. DRAIN: Has Hemovac drain x 1 to the left knee. ANTIBIOTIC: He received Rocephin 1 gram IV piggyback preoperatively. CULTURES: Cultures were taken, synovial fluid of the left knee. COMPLICATIONS: None. SPECIMENS: Synovial fluid. GROSS FINDINGS: Upon examination arthroscopic total left knee, 3-compartment showed severe hypertrophic synovitis throughout the knee region. He does have arthritic changes to all components of the knee, patellofemoral, medial and lateral compartments at least grade 2, some grade 3. No meniscus tears or ACL tear. SURGERY IN DETAIL: Gentleman was taken to the operating room and placed on table, given the benefit of a general anesthetic. A well-padded tourniquet was placed down on the left leg. Leg was placed in knee fernando in standard fashion. He underwent a chlorhexidine prep and sterile draping for left knee surgery. Timeout was called and verified. Two standard arthroscopic portal incisions were made with an 11 blade scalpel, arthroscope was put in initially inferolaterally. I did 6000 mL, lavaged through the knee initially of normal saline. Then, arthroscopic shaver was placed and then [place] [address] OPERATIVE REPORT Name: GERMANSAVLADOR León Room: [address] IN [facility].#: [id number] Admission: 11/23/18 Attend Phys: Malcolm Mccoy MD Discharge: Date of : 63 Report #: [id number] and did a 3-compartment synovectomy. The patient did have evidence of gouty arthritis, crystals, as well also one his Gram stain did show rare gram-negative rods, so this was also the reason for the arthroscopic lavage and failing to improve. The synovectomy was performed in the event that this could be a septic knee as well. At this point in time, after the synovectomy was completely performed in all 3 compartments, the Hemovac drain was placed deep within the knee joint. Portal sites were closed with 4-0 nylon in simple fashion. Xeroform, 4 x 4s, Kerlix, soft roll, Robi wrap dressing was applied and he was transferred off table, taken to recovery in stable condition. I attest, I was present for all critical aspects of the surgery. Needle, instrument, sponge counts correct. <ELECTRONICALLY SIGNED> By: Bryon Yepez DO 12/01/18 0701 [id number] Yepez DO /nt
[2018-12-01 07:18] VITALS: BP 157/77
[2018-12-01 16:13] VITALS: BP 146/68
--- NOTE | 2018-12-01 16:42 | NUR ---
SW met with pt a couple times today to discuss resources/referrals and safe dc planning. Pt continues to confirm that he has an apt to go home to for a short while at least but also says he does not have anyone who would be able to check on this for him or help him once he does go home. SW discussed [facility] program and pt agreeable to assistance, SW faxed face sheet and referral info to [facility]. SW provided more resources for basic needs and medication assistance and SW reminded pt that we may be able to assist with rx at dc. SW to continue to follow to assist with safe dc planning.
--- NOTE | 2018-12-01 17:25 | NUR ---
ASSESSMENT COMPLETE. PT ALERT AND ORIENTED X4. PRN PAIN MEDICATION CHANGED TO 1 TAB Q3 AND TRAMADOL STARTED. TUBIGRIP APPLIED TO LEFT LEG PER DR RHOADES. STITCHES TO LEFT KNEE INTACT. PT AMBULATED WITH PT, DR RHOADES ORDERED TID WITH NURSES WELL. PT IS CURRENTLY IN CHAIR. UP ONE ASSIST WITH WALKER AND GAIT BELT. PT NOT AMBULATING WELL. PT USES URINAL NEEDED. VSS. PT DENIES N/V.SEE ASSESSMENT AND VITALS FOR OTHER DETAILS. CALL LIGHT WITHIN REACH, WILL CONTINUE PLAN OF CARE
[2018-12-01 19:45] VITALS: BP 105/78
--- NOTE | 2018-12-02 05:18 | NUR ---
PT STATED HE DID NOT SLEEP WELL THIS SHIFT. ASSESSMENT DOCUMENTED MEDS GIVEN PER E-MAR. PAIN MEDS GIVEN PER E-JAN, PT STATED HE WAS NOT GETTING MUCH RELIEF SINCE IT WAS DECREASED. PT UP TO BATHROOM SEVERAL TIMES THIS SHIFT. NO IV ACCESS THIS SHIFT. WILL CONTINUE WITH PLAN OF CARE.
[2018-12-02 07:12] VITALS: BP 175/84
--- NOTE | 2018-12-02 11:04 | NUR ---
KRISTY spoke with Khoi from [facility] at [phone]. If pt dc home today before 4:30, Khoi would be able to provide pt ride to supervisor opening and picking meds and provide pt ride home and [facility] would continue to check on pt at times. Medication assistance for [place]. KRISTY discussed with Yuliet who would also assist with finalizing dc plan.
[2018-12-02 16:12] VITALS: BP 106/59
--- NOTE | 2018-12-02 16:50 | NUR ---
ASSESSMENT COMPLETE. PT ALERT AND ORIENTED X4. PT REPORTS PAIN MEDICATION NOT WORKING SINCE CHANGED BY PROVIDER. PT HAS TUBIGRIP IN PLACE. LIDACAINE PATCH APPLIED TO LEFT FOOT. PT REPORTS INCREASE IN SWELLING TO FOOT AND KNEE, DR RHOADES ORDERED ONE TIME PO LASIX. PT IS ON ROOM AIR WITH ERNA SATS, VSS. PT DENIES N/V. STITCHES TO LEFT KNEE INTACT. PT AMBULATED IN HALLS TID. PT IS UP ONE ASSIST WITH WALKER AND GAIT BELT. SEE ASSESSMENT AND VITALS FOR OTHER DETAILS. CALL LIGHT WITHIN REACH
[2018-12-02 21:05] VITALS: BP 117/67
[2018-12-03 04:07] LABS: HEMATOCRIT 39.5 % (42.0-52.0); HEMOGLOBIN 13.3 gm/dL (14.0-18.0); MCH 31.1 pg (26.0-34.0); MCHC 33.7 g/dL (28.0-37.0); MCV 92.5 fL (80.0-100.0); RBC 4.27 mil/uL (4.50-6.00); RDW-CV 13.3 % (10.5-14.5); WBC 5.5 thou/uL (4.0-11.0)
[2018-12-03 04:31] LABS: ALBUMIN 2.8 g/dL (3.4-5.0); CALCIUM 8.7 mg/dL (8.5-10.1); CREATININE 1.1 mg/dL (0.6-1.3); MAGNESIUM 1.8 mg/dL (1.8-2.4); POTASSIUM 3.9 mmol/L (3.5-5.1); TOTAL BILIRUBIN 0.2 mg/dL (<0.1-1.0); TOTAL PROTEIN 6.6 g/dL (6.4-8.2)
--- NOTE | 2018-12-03 05:58 | NUR ---
PT SLEPT MOST OF SHIFT. ASSESSMENT DOCUMENTED. MEDS GIVEN PER E-MAR. PAIN MEDS GIVEN PER E-MAR WITH PARTIAL RELIEF. LEFT KNEE SWOLLEN, PT REMOVED TUBAGRIP DUE TO DISCOMFORT STATING HE WOULD PUT IT ON WHEN HE GOT BACK UP. WILL CONTINUE WITH PLAN OF CARE.
[2018-12-03 08:00] VITALS: BP 153/92
[2018-12-03] MEDS ORDERED: ALLOPURINOL 30300 M1 PO (11:35)
[2018-12-03] MEDS ORDERED: PERCOCET PO (11:35)
[2018-12-03] MEDS ORDERED: TRAMADOL 50 MG50 MG PO (11:35)
[2018-12-03] MEDS ORDERED: COLCHICINE0.6 MG PO (11:35)
[2018-12-03 14:16] VITALS: BP 153/92
[2018-12-03 16:36] VITALS: BP 153/92
--- NOTE | 2018-12-03 16:37 | NUR ---
KRISTY met with pt to discuss pt dc home today. SW reviewed rx assistance program and reminded of resources and referrals that were previously given/discussed. KRISTY faxed meds and cover sheet to [place] [phone] and called and spoke with pharmacist to confirm. KRISTY completed cab voucher for pt to be transported to [facility] and then to home to his apt. KRISTY asked about SW finding a donated walker for pt but pt refused stating that he would not be able to navigate with his walker in his apt anyway. KRISTY encouraged pt to call the fire dept if he was unable to get up his flight of stairs safely and that they would be able to ensure pt was able to enter his home.
--- NOTE | 2018-12-03 17:50 | NUR ---
PATIENT DISCHARGED TO HOME. DISCHARGE PAPERS REVIEWED AND SIGNED. NO IV. PRESCRIPTIONS OTHER THAN PAIN MEDICATIONS PROVIDED BY [facility] ON [address]. PATIENT REFUSED WALKER. PATIENT INSTRUCTED TO FOLLOWUP WITH [facility] FOR SUTURE REMOVAL AND WATERPROOF BANADAGES PROVIDED FOR SHOWERING. PATIENT INSTRUCTED THAT [facility] IS AVAILABLE TO ASSIST PATIENT INTO HOUSE IF NEEDED BUT [facility] WAS NOT APPROVED. PATIENT APPREHENSIVE TO GO HOME BUT DENIED NEED FOR FURTHER ASSISTANCE. PATIENT PROVIDED TAXI VOUCHER. PATIENT TAKEN TO ER WAITING ROOM TO AWAIT TAXI.
== END 2018-12-03 17:50 | disposition home or self-care (01) | DRG 488 ==
LOC: M.ERS 04:36 → M.3W 08:03 → M.TBA-ER 08:03 → M.3W 08:42
PROVIDERS: Emergency Medicine Emergency Medical Services; Internal Medicine; Orthopaedic Surgery; Personal Emergency Response Attendant; Specialist; ADMIT Internal Medicine
PROC: 0S9D3ZZ Drainage of Left Knee Joint, Percutaneous Approach (ICD-10-PCS; principal; 2018-11-23)
PROC: 0S9D4ZZ Drainage of Left Knee Joint, Percutaneous Endoscopic Approach (ICD-10-PCS; 2018-11-25)
PROC: 0SBD4ZZ Excision of Left Knee Joint, Percutaneous Endoscopic Approach (ICD-10-PCS; 2018-11-27)
PROC: 3E1U38Z Irrigation of Joints using Irrigating Substance, Percutaneous Approach (ICD-10-PCS; 2018-11-27)
DX: M00.9 Pyogenic arthritis, unspecified (principal); L03.116 Cellulitis of left lower limb; L03.115 Cellulitis of right lower limb; M25.062 Hemarthrosis, left knee; M10.062 Idiopathic gout, left knee; M25.462 Effusion, left knee; E03.9 Hypothyroidism, unspecified; J44.9 Chronic obstructive pulmonary disease, unspecified; E30.9 Disorder of puberty, unspecified; I25.10 Atherosclerotic heart disease of native coronary artery without angina pectoris; I10 Essential (primary) hypertension; F17.290 Nicotine dependence, other tobacco product, uncomplicated; F12.90 Cannabis use, unspecified, uncomplicated; S80.01XA Contusion of right knee, initial encounter; F10.20 Alcohol dependence, uncomplicated; Z79.899 Other long term (current) drug therapy; I25.2 Old myocardial infarction; Z88.0 Allergy status to penicillin; Z88.2 Allergy status to sulfonamides; Z79.82 Long term (current) use of aspirin; X58.XXXA Exposure to other specified factors, initial encounter; Y93.89 Activity, other specified; Y92.89 Other specified places as the place of occurrence of the external cause; Y99.8 Other external cause status